=== PATIENT | male | born 1980 | race Caucasian/White ===

== ENCOUNTER 2018-07-24 12:34 | Inpatient (IN) | payer BC, OTHER ==
[~2018-07-24] VITALS: Ht 175.3 cm; Wt 74.8 kg
[2018-07-24 18:25] VITALS: BP 132/77
[2018-07-24] MEDS ORDERED: SRC OPIOID WITHDRAWAL ADMITTING PROTOCOL XX PRN (19:45)
[2018-07-24] MEDS ORDERED: SRC BENZO WITHDRAWAL ADMITTING PROTOCOL XX PRN (19:45)
[2018-07-24 20:00] VITALS: BP 128/78
[2018-07-24] MEDS ORDERED: MAGNESIUM HYDROXIDE 30 ML LIQUID UDC PO PRN (20:15)
[2018-07-24] MEDS ORDERED: ONDANSETRON 4 MG/2 ML VIAL IM PRN (20:15)
[2018-07-24] MEDS ORDERED: LORAZEPAM 2 MG/1 ML VIAL IM PRN (20:15)
[2018-07-24] MEDS ORDERED: MIRALAX 17 GM POWD.PACK PO PRN (20:15)
[2018-07-24] MEDS ORDERED: ONDANSETRON ODT 4 MG TAB.RAPDIS SL PRN (20:15)
[2018-07-24] MEDS ORDERED: LORAZEPAM 1 MG TABLET PO PRN (20:15)
[2018-07-24] MEDS ORDERED: diphenhydrAMINE 50 MG CAPSULE PO PRN (20:15)
[2018-07-24] MEDS ORDERED: ACETAMINOPHEN 325 MG TABLET PO PRN (20:15)
[2018-07-24] MEDS ORDERED: LOPERAMIDE HCL 2 MG CAPSULE PO PRN ×2 (20:15)
[2018-07-24] MEDS ORDERED: MAG HYDROX/AL HYDROX/SIMETH 30 ML LIQUID UDC PO PRN (20:15)
[2018-07-24] MEDS: LORAZEPAM 1 MG TABLET PO PRN ×2 (20:56→23:54)
[2018-07-24] MEDS: BUPRENORPHINE HCL 2 MG TAB.SUBL SL PRN (20:56)
[2018-07-24 20:57] LABS: *AMPHETAMINE, URINE POSITIVE (NEGATIVE); *BARBITURATE, URINE NEGATIVE (NEGATIVE); *CANNABINOID, URINE NEGATIVE (NEGATIVE); *COCCAINE, URINE NEGATIVE (NEGATIVE); *OPIATE, URINE NEGATIVE (NEGATIVE); *PHENCYCLIDINE SCREEN,URINE NEGATIVE (NEGATIVE)
[2018-07-24] MEDS: CLONIDINE HCL 0.1 MG TABLET PO PRN (22:15)
[2018-07-24] MEDS: METHOCARBAMOL 750 MG TABLET PO PRN (22:15)
[2018-07-25] VITALS (7 sets, daily range): BP systolic 106–131; BP diastolic 62–86
[2018-07-25] MEDS: LORAZEPAM 1 MG TABLET PO PRN ×3 (02:11→07:47)
[2018-07-25] MEDS: HYDROXYZINE PAMOATE 25 MG CAPSULE PO PRN (02:20)
[2018-07-25] MEDS ORDERED: BUPR8TAB4 SL (02:36)
[2018-07-25] MEDS ORDERED: DICL100G31 TP (02:41)
[2018-07-25 02:47] LABS: BASOPHILS # (AUTO) 0.1 K/uL (0.0-8.0); BASOPHILS % (AUTO) 0.7 % (0.0-2.0); EOSINOPHILS % (AUTO) 0.4 % (0.0-7.0); HEMATOCRIT 44.5 % (36.7-47.1); HEMOGLOBIN 15.4 g/dL (12.5-16.3); LYMPHOCYTES # (AUTO) 3.1 K/uL (20.0-40.0); LYMPHOCYTES % (AUTO) 44.5 % (20.5-51.5); MEAN CORPUSCULAR HEMOGLOBIN 31.1 uug (23.8-33.4); MEAN CORPUSCULAR HGB CONC 35 g/dL (32.5-36.3); MEAN CORPUSCULAR VOLUME 89.9 fL (73.0-96.2); MONOCYTES # (AUTO) 0.7 K/uL (2.0-10.0); MONOCYTES % (AUTO) 10.3 % (0.0-11.0); NEUTROPHILS # (AUTO) 3.1 K/uL (1.8-8.9); NEUTROPHILS % (AUTO) 44.1 % (38.5-71.5); PLATELET COUNT (AUTO) 294 K/uL (152-348); RED BLOOD CELL COUNT(AUTO) 4.95 MIL/uL (4.06-5.63)
[2018-07-25 03:11] LABS: ETHANOL < 3 MG/DL (0-0)
[2018-07-25 03:12] LABS: ALANINE AMINOTRANSFERASE 29 U/L (16-63); ALKALINE PHOSPHATASE 54 U/L (50-136); ASPARTATE AMINOTRANSFERASE 22 U/L (15-37); BILIRUBIN,TOTAL 0.7 mg/dL (0.2-1.0); CARBON DIOXIDE 32 mmol/L (21-32); CHLORIDE 106 mmol/L (98-107); CREATININE 1.1 mg/dL (0.6-1.3); GLUCOSE 69 mg/dL (74-106); MAGNESIUM 2.2 mg/dL (1.8-2.4); POTASSIUM 3.6 mmol/L (3.5-5.1); TOTAL PROTEIN, SERUM 7.7 g/dL (6.4-8.2); UREA NITROGEN, BLOOD 14 mg/dL (7-18)
[2018-07-25 03:42] LABS: THYROID STIMULATING HORMONE 0.712 mIU/mL (0.358-3.740)
[2018-07-25] MEDS ORDERED: LORAZEPAM 1 MG TABLET PO ONE (03:45)
[2018-07-25] MEDS: CLONIDINE HCL 0.1 MG TABLET PO PRN (04:56)
[2018-07-25] MEDS: MULTIVITAMINS,THERAPEUTIC TABLET PO SCH (07:46)
[2018-07-25] MEDS ORDERED: TUBERCULIN,PURIF.PROT.DERIV. 5 TU/0.1 ML TEST ID ONE (09:00)
[2018-07-25] MEDS: BUPRENORPHINE HCL 2 MG TAB.SUBL SL PRN (10:29)
[2018-07-25] MEDS: QUETIAPINE FUMARATE 25 MG TABLET PO PRN (10:45)
[2018-07-25] MEDS ORDERED: QUET200T PO (11:28)
[2018-07-25] MEDS ORDERED: DIAZEPAM 10 MG TABLET PO PRN ×2 (12:15)
[2018-07-25] MEDS ORDERED: 5 DAY TAPER VALIUM-SERENITY PROTOCOL PO PRN (12:15)
[2018-07-25] MEDS ORDERED: DIAZEPAM 5 MG TABLET PO PRN (12:15)
[2018-07-25] MEDS ORDERED: 5 DAY TAPER BUPRENORPHINE -SERENITY PROTOCOL SL PRN (12:15)
[2018-07-25] MEDS: BUPRENORPHINE HCL 2 MG TAB.SUBL SL SCH ×3 (13:00→20:29)
[2018-07-25] MEDS: DIVALPROEX ER 500 MG TAB.SR.24H PO SCH ×2 (13:27→20:29)
[2018-07-25] MEDS: DIAZEPAM 10 MG TABLET PO SCH ×2 (16:10→20:29)
[2018-07-25] MEDS: METHOCARBAMOL 750 MG TABLET PO PRN (20:28)
[2018-07-25] MEDS: QUETIAPINE FUMARATE 200 MG TABLET PO SCH (20:29)
[2018-07-25] MEDS: IBUPROFEN 600 MG TABLET PO PRN (20:29)
[2018-07-26 08:00] VITALS: BP 137/77
[2018-07-26] MEDS: DIVALPROEX ER 500 MG TAB.SR.24H PO SCH ×2 (08:38→20:13)
[2018-07-26] MEDS: MULTIVITAMINS,THERAPEUTIC TABLET PO SCH (08:38)
[2018-07-26] MEDS: METHOCARBAMOL 750 MG TABLET PO PRN ×2 (08:38→20:13)
[2018-07-26] MEDS: DIAZEPAM 5 MG TABLET PO SCH ×4 (08:38→20:13)
[2018-07-26] MEDS: IBUPROFEN 600 MG TABLET PO PRN ×2 (08:38→20:13)
[2018-07-26] MEDS: BUPRENORPHINE HCL 2 MG TAB.SUBL SL SCH ×3 (08:39→20:14)
[2018-07-26 12:00] VITALS: BP 113/70
[2018-07-26] MEDS: CLONIDINE HCL 0.1 MG TABLET PO PRN (12:16)
[2018-07-26 15:07] LABS: HEPATITIS B SURFACE AG Negative (Negative)
[2018-07-26 16:54] VITALS: BP 116/61
[2018-07-26 20:00] VITALS: BP 106/72
[2018-07-26] MEDS: QUETIAPINE FUMARATE 200 MG TABLET PO SCH (20:13)
[2018-07-27 04:00] VITALS: BP 112/75
[2018-07-27 07:07] LABS: POTASSIUM 3.4 mmol/L (3.5-5.1)
[2018-07-27 08:00] VITALS: BP 120/79
[2018-07-27] MEDS: DIVALPROEX ER 500 MG TAB.SR.24H PO SCH ×2 (08:33→21:17)
[2018-07-27] MEDS: METHOCARBAMOL 750 MG TABLET PO PRN (08:34)
[2018-07-27] MEDS: MULTIVITAMINS,THERAPEUTIC TABLET PO SCH (08:34)
[2018-07-27] MEDS: DIAZEPAM 5 MG TABLET PO SCH ×3 (08:34→21:17)
[2018-07-27] MEDS ORDERED: BUPRENORPHINE HCL 2 MG TAB.SUBL SL SCH (09:00)
[2018-07-27 12:00] VITALS: BP 125/70
[2018-07-27] MEDS: HYDROXYZINE PAMOATE 25 MG CAPSULE PO PRN (12:27)
[2018-07-27] MEDS: QUETIAPINE FUMARATE 25 MG TABLET PO PRN (12:27)
[2018-07-27] MEDS ORDERED: POTASSIUM CHLORIDE 20 MEQ TAB.PRT.SR PO ONE (12:45)
[2018-07-27] MEDS: PANTOPRAZOLE SODIUM 40 MG TABLET.DR PO SCH (15:40)
[2018-07-27] MEDS: BUPRENORPHINE HCL 2 MG TAB.SUBL SL SCH ×2 (15:41→21:18)
[2018-07-27 16:30] VITALS: BP 136/75
[2018-07-27 20:00] VITALS: BP 134/70
[2018-07-27] MEDS: QUETIAPINE FUMARATE 200 MG TABLET PO SCH (21:17)
[2018-07-28 07:26] LABS: CREATININE 1.1 mg/dL (0.6-1.3); POTASSIUM 4.1 mmol/L (3.5-5.1)
[2018-07-28] MEDS: PANTOPRAZOLE SODIUM 40 MG TABLET.DR PO SCH (07:27)
[2018-07-28 08:00] VITALS: BP 95/65
[2018-07-28] MEDS: DIVALPROEX ER 500 MG TAB.SR.24H PO SCH ×2 (08:28→20:23)
[2018-07-28] MEDS: BUPRENORPHINE HCL 2 MG TAB.SUBL SL SCH ×3 (08:29→20:24)
[2018-07-28] MEDS: MULTIVITAMINS,THERAPEUTIC TABLET PO SCH (08:29)
[2018-07-28] MEDS: DIAZEPAM 5 MG TABLET PO SCH ×2 (08:29→20:23)
[2018-07-28 12:00] VITALS: BP 144/83
[2018-07-28] MEDS: HYDROXYZINE PAMOATE 25 MG CAPSULE PO PRN (14:41)
[2018-07-28 16:00] VITALS: BP 129/79
[2018-07-28 20:00] VITALS: BP 125/68
[2018-07-28] MEDS: QUETIAPINE FUMARATE 200 MG TABLET PO SCH (20:23)
[2018-07-29] MEDS: PANTOPRAZOLE SODIUM 40 MG TABLET.DR PO SCH (06:51)
[2018-07-29 08:00] VITALS: BP 124/74
[2018-07-29] MEDS: MULTIVITAMINS,THERAPEUTIC TABLET PO SCH (08:37)
[2018-07-29] MEDS: DIVALPROEX ER 500 MG TAB.SR.24H PO SCH ×2 (08:37→20:28)
[2018-07-29] MEDS ORDERED: DIAZEPAM 5 MG TABLET PO SCH (09:00)
[2018-07-29] MEDS ORDERED: BUPRENORPHINE HCL 2 MG TAB.SUBL SL SCH (09:00)
[2018-07-29 12:00] VITALS: BP 117/77
[2018-07-29] MEDS ORDERED: METH-406 PO (14:54)
[2018-07-29] MEDS ORDERED: CLON0.1T14 PO (14:54)
[2018-07-29] MEDS ORDERED: QUET200T PO (14:54)
[2018-07-29] MEDS ORDERED: DIVA500T4 PO (14:54)
[2018-07-29] MEDS ORDERED: HYDR-3895 PO (14:54)
[2018-07-29] MEDS ORDERED: PANT40TA2 PO (14:54)
[2018-07-29] MEDS ORDERED: NALO4SPR NS (14:54)
[2018-07-29] MEDS ORDERED: QUET25TA PO (14:54)
[2018-07-29 16:00] VITALS: BP 114/78
[2018-07-29 20:00] VITALS: BP 126/76
[2018-07-29] MEDS: QUETIAPINE FUMARATE 200 MG TABLET PO SCH (20:28)
[2018-07-30] VITALS: BP 121/73
[2018-07-30] MEDS: PANTOPRAZOLE SODIUM 40 MG TABLET.DR PO SCH (07:20)
[2018-07-30] MEDS: DIVALPROEX ER 500 MG TAB.SR.24H PO SCH (08:45)
[2018-07-30] MEDS: MULTIVITAMINS,THERAPEUTIC TABLET PO SCH (08:45)
[2018-07-30 10:00] VITALS: BP 116/78
== END 2018-07-30 09:49 | disposition other institution (70) | DRG 895 ==
LOC: SRC 17:40
PROVIDERS: ADMIT Family Medicine Addiction Medicine; ATTEND Family Medicine Addiction Medicine
PROC: HZ2ZZZZ Detoxification Services for Substance Abuse Treatment (ICD-10-PCS; principal; 2018-07-24)
PROC: HZ31ZZZ Individual Counseling for Substance Abuse Treatment, Behavioral (ICD-10-PCS; 2018-07-25)
PROC: HZ41ZZZ Group Counseling for Substance Abuse Treatment, Behavioral (ICD-10-PCS; 2018-07-27)
DX: F15.23 Other stimulant dependence with withdrawal (principal); F31.64 Bipolar disorder, current episode mixed, severe, with psychotic features; F11.23 Opioid dependence with withdrawal; F41.1 Generalized anxiety disorder; Z91.030 Bee allergy status; F43.10 Post-traumatic stress disorder, unspecified; V43.52XS Car driver injured in collision with other type car in traffic accident, sequela; Z98.1 Arthrodesis status; F17.210 Nicotine dependence, cigarettes, uncomplicated; Z79.899 Other long term (current) drug therapy; E87.6 Hypokalemia; F31.9 Bipolar disorder, unspecified; E16.2 Hypoglycemia, unspecified; F13.230 Sedative, hypnotic or anxiolytic dependence with withdrawal, uncomplicated; R12 Heartburn; R76.8 Other specified abnormal immunological findings in serum
CPT/HCPCS: 36415; 70030-TC; 80164; 80307; 80324; 83735; 84443; 85025; 86592; 86705; 86803; 87340; 87806; 93005; G0480; Q0162; Q0163